=== PATIENT | female | born 1970 | race African-American/Black ===

== ENCOUNTER 2017-03-28 06:14 | Emergency (ER) | payer MEDICARE, MEDICAID ==
[2017-03-28 06:48] LABS: BASOPHILS 0 % (0-2); EOSINOPHILS 0.8 % (0-7); LYMPHOCYTES 40.7 % (15-50); MCH 29.9 pg (26.0-34.0); MCHC 31.7 g/dL (31.0-37.0); MCV 94.4 fL (80.0-100.0); MEAN PLATELET VOLUME 8.2 fL (7.4-10.4); MONOCYTES 6.6 % (2-11); NEUTROPHILS 51.9 % (40-80); PLATELET COUNT 113 10x3/uL (130-400); RDW 14.3 % (11.5-14.5); WBC 3.7 10x3/uL (4.8-10.8)
[2017-03-28 06:53] LABS: HEMATOCRIT 16.7 % (36.0-48.0); HEMOGLOBIN 5.3 g/dL (12-16); RBC 1.77 10x6/uL (4.00-5.40)
[2017-03-28 07:20] LABS: BILIRUBIN - TOTAL 0.11 mg/dL (0.2-1.3); CARBON DIOXIDE 12.6 mmol/L (21.0-32.0); CREATININE - SERUM 1.4 mg/dL (0.6-1.3); PROTEIN - SERUM 3.9 g/dL (6.4-8.2); THYROID STIMULATING HORMONE 1.01 uIU/mL (0.36-3.74); TROPONIN-I 0.02 ng/mL (0.000-0.060)
[2017-03-28 07:21] LABS: ANION GAP 13.5 mmol/L (8-16); CALCIUM 4.5 mg/dL (8.5-10.1); POTASSIUM - SERUM 2.1 mmol/L (3.5-5.1)
[2017-03-28 08:17] LABS: BASOPHILS 0.1 % (0-2); EOSINOPHILS 0.3 % (0-7); IMMATURE GRANULOCYTES 0.2 % (0-5); LYMPHOCYTES 20.9 % (15-50); MCH 30.4 pg (26.0-34.0); MCHC 33.3 g/dL (31.0-37.0); MEAN PLATELET VOLUME 8.4 fL (7.4-10.4); NEUTROPHILS 72.5 % (40-80)
[2017-03-28 08:18] LABS: HEMATOCRIT 33.9 % (36.0-48.0); HEMOGLOBIN 11.3 g/dL (12-16); MCV 91.1 fL (80.0-100.0); PLATELET COUNT 253 10x3/uL (130-400); RBC 3.72 10x6/uL (4.00-5.40)
[2017-03-28 08:27] LABS: WBC 10.2 10x3/uL (4.8-10.8)
[2017-03-28 08:40] LABS: ALBUMIN 3.7 g/dL (3.4-5.0); BILIRUBIN - TOTAL 0.16 mg/dL (0.2-1.3); CARBON DIOXIDE 21.5 mmol/L (21.0-32.0); CREATININE - SERUM 2.6 mg/dL (0.6-1.3); MAGNESIUM - SERUM 1.8 mg/dL (1.8-2.4); POTASSIUM - SERUM 4.5 mmol/L (3.5-5.1); PROTEIN - SERUM 7.1 g/dL (6.4-8.2); THYROID STIMULATING HORMONE 1.89 uIU/mL (0.36-3.74); TROPONIN-I 0.047 ng/mL (0.000-0.060)
== END 2017-03-28 08:57 | disposition home or self-care (01) ==
LOC: D.ER 06:14 → D.CVICU 08:13 → D.ER 08:57
PROVIDERS: Family Medicine
DX: I47.1 Supraventricular tachycardia (principal); I10 Essential (primary) hypertension; Z94.0 Kidney transplant status; E87.6 Hypokalemia; E83.42 Hypomagnesemia; E83.51 Hypocalcemia

== ENCOUNTER 2017-05-23 09:11 | Emergency (ER) | payer MEDICARE ==
[2017-05-23 09:41] LABS: BASOPHILS 0.2 % (0-2); EOSINOPHILS 2.1 % (0-7); HEMATOCRIT 32.7 % (36.0-48.0); HEMOGLOBIN 10.5 g/dL (12-16); IMMATURE GRANULOCYTES 0.2 % (0-5); LYMPHOCYTES 45.2 % (15-50); MCH 30.1 pg (26.0-34.0); MCHC 32.1 g/dL (31.0-37.0); MCV 93.7 fL (80.0-100.0); MEAN PLATELET VOLUME 8.3 fL (7.4-10.4); MONOCYTES 6.8 % (2-11); NEUTROPHILS 45.5 % (40-80); PLATELET COUNT 294 10x3/uL (130-400); RBC 3.49 10x6/uL (4.00-5.40); RDW 13.8 % (11.5-14.5); WBC 6.3 10x3/uL (4.8-10.8)
[2017-05-23 09:54] LABS: ALBUMIN 3.9 g/dL (3.4-5.0); ANION GAP 17.5 mmol/L (8-16); BILIRUBIN - TOTAL 0.28 mg/dL (0.2-1.3); CALCIUM 8.4 mg/dL (8.5-10.1); CARBON DIOXIDE 21.5 mmol/L (21.0-32.0); CREATININE - SERUM 3.1 mg/dL (0.6-1.3); PROTEIN - SERUM 7.4 g/dL (6.4-8.2)
[2017-05-23 10:19] LABS: APPEARANCE CLEAR (CLEAR); COLOR YELLOW (YELLOW); GLUCOSE NEGATIVE (NEGATIVE); KETONE NEGATIVE (NEGATIVE); NITRITE NEGATIVE (NEGATIVE); PROTEIN TRACE mg/dL (NEGATIVE); UROBILINOGEN NORMAL (NORMAL)
[2017-05-23 10:20] LABS: BACTERIA MODERATE /hpf (NONE SEEN); BILIRUBIN NEGATIVE (NEGATIVE); EPITHELIAL CELLS 0-5 /hpf (0-5); RED CELLS - URINE 0-5 /hpf (0-5); WHITE CELLS - URINE 0-5 /hpf (0-5)
[2017-05-23 11:14] LABS: CALCIUM 8.6 mg/dL (8.5-10.1); CARBON DIOXIDE 25.2 mmol/L (21.0-32.0); CREATININE - SERUM 3.1 mg/dL (0.6-1.3); POTASSIUM - SERUM 4.2 mmol/L (3.5-5.1)
== END 2017-05-23 11:50 | disposition home or self-care (01) ==
LOC: D.ER 09:11
PROVIDERS: Family Medicine
DX: J20.9 Acute bronchitis, unspecified (principal); I12.9 Hypertensive chronic kidney disease with stage 1 through stage 4 chronic kidney disease, or unspecified chronic kidney disease; N18.9 Chronic kidney disease, unspecified; F17.200 Nicotine dependence, unspecified, uncomplicated

== ENCOUNTER 2017-11-01 08:45 | Emergency (ER) | payer MEDICARE ==
[2017-11-01 10:08] LABS: BASOPHILS 0.1 % (0-2); EOSINOPHILS 0 % (0-7); HEMATOCRIT 42.7 % (36.0-48.0); HEMOGLOBIN 14.4 g/dL (12-16); IMMATURE GRANULOCYTES 0.3 % (0-5); LYMPHOCYTES 12.2 % (15-50); MCH 31.4 pg (26.0-34.0); MCHC 33.7 g/dL (31.0-37.0); MEAN PLATELET VOLUME 8.9 fL (7.4-10.4); MONOCYTES 3.2 % (2-11); NEUTROPHILS 84.2 % (40-80); PLATELET COUNT 298 10x3/uL (130-400); RBC 4.59 10x6/uL (4.00-5.40); RDW 14.4 % (11.5-14.5); WBC 9.7 10x3/uL (4.8-10.8)
[2017-11-01 10:24] LABS: APPEARANCE HAZY (CLEAR); BACTERIA FEW /hpf (NONE SEEN); BILIRUBIN NEGATIVE (NEGATIVE); COLOR YELLOW (YELLOW); EPITHELIAL CELLS RARE /hpf (0-5); GLUCOSE NEGATIVE (NEGATIVE); KETONE NEGATIVE (NEGATIVE); NITRITE NEGATIVE (NEGATIVE); PROTEIN NEGATIVE (NEGATIVE); SPECIFIC GRAVITY 1.005 (1.005-1.020); UROBILINOGEN NORMAL (NORMAL); WHITE CELLS - URINE RARE /hpf (0-5)
[2017-11-01 10:31] LABS: ALBUMIN 4.9 g/dL (3.4-5.0); AMYLASE - SERUM 159 U/L (25-115); BILIRUBIN - TOTAL 0.76 mg/dL (0.2-1.3); CALCIUM 9.6 mg/dL (8.5-10.1); CARBON DIOXIDE 19.2 mmol/L (21.0-32.0); CHLORIDE - SERUM 98 mmol/L (98-107); CREATININE - SERUM 2.8 mg/dL (0.6-1.3); GLUCOSE 94 mg/dL (74-106); LIPASE 95 U/L (73-393); PROTEIN - SERUM 9.7 g/dL (6.4-8.2); SODIUM 132 mmol/L (136-145); UREA NITROGEN 23 mg/dL (7-18); eGFR NON AFRICAN AMERICAN 19 mL/min (90-120)
[2017-11-01 10:34] LABS: ALKALINE PHOSPHATASE 97 U/L (46-116); ALT (SGPT) 23 U/L (10-68); TROPONIN-I < 0.017 ng/mL (0.000-0.060)
[2017-11-01 11:33] LABS: POTASSIUM - SERUM 4.8 mmol/L (3.5-5.1)
[2017-11-05 15:37] VITALS: BMI 26.6
== END 2017-11-01 13:00 | disposition home or self-care (01) ==
LOC: D.ER 08:45
PROVIDERS: Family Medicine
DX: I31.3 Pericardial effusion (noninflammatory) (principal); R11.10 Vomiting, unspecified; I12.9 Hypertensive chronic kidney disease with stage 1 through stage 4 chronic kidney disease, or unspecified chronic kidney disease; N18.9 Chronic kidney disease, unspecified

== ENCOUNTER 2017-11-05 12:23 | Inpatient (IN) | payer MEDICARE ==
[~2017-11-05] VITALS: Ht 162.6 cm; Wt 72.5 kg
--- NOTE | ~2017-11-05 | EC ---
PATIENT:SUKUMAR MCLEAN DATE OF SERVICE: 11/05/17 SEX: F MEDICAL RECORD: [id number] DATE OF : [birth year] LOCATION:D.M2 D.211 AGE OF PATIENT: 47 ADMISSION DATE: 11/06/17 REFERRING PHYSICIAN: INTERPRETING PHYSICIAN: TRACIE NORRIS MD ECHOCARDIOGRAM REPORT ECHO CHARGES 4 ECHO COMPLETE Date: 11/05 CLINICAL DIAGNOSIS: PERICARDIAL EFFUSION ECHOCARDIOGRAPHIC MEASUREMENTS (adult normal given) AC root (d.<3.7cm) 3.1 cm LV Septum d (<1.2 cm> 1.8 cm Valve Excursion 1.9 cm LV Septum (systole) 2.3 cm Left Atria (s.<4.0cm> 3.9 cm LVPW d(<1.2cm) 1.6 cm RV (d.<2.3cm) 2.8 cm LVPW (sytole) 2.2 cm LV diastole(<5.6CM) 3.9 cm MV E-F(>70mm/sec) cm LV systole 1.7 cm LVOT Diameter 1.9 cm MV exc.(>10mm) cm Est.ejection fraction (50-75%) % DOPPLER: LVIT cm/sec A 134 cm/sec E 115 cm/sec LA cm/sec RVSP 37.0 mmHg LVOT 184 cm/sec AOP1/2T m/s Asc. Ao 198 cm/sec RVOT 71.0 cm/sec RA cm/sec PA 98.0 cm/sec AV Gradient Peak 16.0 mmHg AV Mean 6.8 mmHg AV Area 2.8 cm MV Gradient Peak 8.3 mmHg MV Mean 3.6 mmHg MV Area cm COMMENTS: Roll Forming Supervisor: Carlos Eduardo SHEEHANOE Supervisor Claims: 1 Dr. Norris TAPE# PACS Pericardial Effusion Y DATE OF SERVICE: 11/05/2017 PROCEDURE: Echocardiogram. FINDINGS: 1. Left ventricular chamber size is within normal limits. Left ventricular systolic function is normal. Overall ejection fraction estimated at 60%. 2. Left atrium, right atrium, and right ventricle chamber sizes are within normal limits. 3. Valvular structures have normal structure and motion. ECHOCARDIOGRAM REPORT [id number] SUKUMAR MCLEAN 4. Doppler interrogation reveals trace mitral regurgitation, mild tricuspid regurgitation, no other valvular insufficiency or stenosis. Pulmonary systolic pressure is estimated 37 mmHg. 5. Trace pericardial effusion is present. This is not hemodynamically significant. No evidence of left ventricular thrombus. TRANSINT:[id number] Voice Confirmation ID: [id number] DOCUMENT ID: [id number] TRACIE NORRIS MD at 1629 CC: [id number] DICTATION DATE: 11/06/17840 CRA OFFICER: 11/06/17 1151 DIS IN 11/08/17 [id number] [place] [address]
[2017-11-05] MEDS ORDERED: NORMODYNE / TR200 MG PO (13:12)
[2017-11-05] MEDS ORDERED: HYDRALAZINE HCL50 MG PO (13:12)
[2017-11-05] MEDS ORDERED: PROTONIX40 MG PO (13:13)
[2017-11-05] MEDS ORDERED: RENA-VITE TABL0.8 MG PO (13:14)
[2017-11-05] MEDS ORDERED: SODIUM BICARBO650 MG PO (13:15)
[2017-11-05] MEDS ORDERED: CATAPRES0.2 MG PO (13:16)
[2017-11-05] MEDS ORDERED: ZOFRAN4 MG PO (13:17)
[2017-11-05] MEDS ORDERED: CELLCEPT500 MG PO (13:18)
[2017-11-05] MEDS ORDERED: TACROLIMUS ANHYD1 MG PO (13:18)
[2017-11-05] MEDS ORDERED: VITAMIN D250000 UNIT PO (13:19)
[2017-11-05] MEDS ORDERED: ACETAMINOPHEN325 MG PO (13:19)
[2017-11-05] MEDS ORDERED: REGLAN10 MG PO (13:20)
[2017-11-05] MEDS ORDERED: BENADRYL25 MG PO (13:21)
[2017-11-05] MEDS ORDERED: MIRALAX17 GM PO (13:21)
[2017-11-05 13:30] VITALS: BP 110/63; BMI 26.6
[2017-11-05 14:34] LABS: BASOPHILS 0.1 % (0-2); EOSINOPHILS 0.9 % (0-7); HEMATOCRIT 32.7 % (36.0-48.0); HEMOGLOBIN 10.9 g/dL (12-16); IMMATURE GRANULOCYTES 0.3 % (0-5); LYMPHOCYTES 36.2 % (15-50); MCH 30.4 pg (26.0-34.0); MCHC 33.3 g/dL (31.0-37.0); MCV 91.1 fL (80.0-100.0); MEAN PLATELET VOLUME 9.1 fL (7.4-10.4); MONOCYTES 13.6 % (2-11); NEUTROPHILS 48.9 % (40-80); RBC 3.59 10x6/uL (4.00-5.40); RDW 14.1 % (11.5-14.5); WBC 7.4 10x3/uL (4.8-10.8)
[2017-11-05 14:35] LABS: PLATELET COUNT 211 10x3/uL (130-400)
[2017-11-05 14:48] LABS: ANION GAP 19.4 mmol/L (8-16); CALCIUM 7.8 mg/dL (8.5-10.1); CREATININE - SERUM 11.7 mg/dL (0.6-1.3); POTASSIUM - SERUM 3.4 mmol/L (3.5-5.1)
[2017-11-05 15:31] LABS: AMYLASE - SERUM 75 U/L (25-115); LIPASE 128 U/L (73-393)
[2017-11-05 15:37] VITALS: BP 127/82; Ht 162.6 cm; Wt 72.5 kg
[2017-11-05 20:49] LABS: ALBUMIN 3.6 g/dL (3.4-5.0); ANION GAP 20.8 mmol/L (8-16); BILIRUBIN - TOTAL 0.33 mg/dL (0.2-1.3); CALCIUM 7.7 mg/dL (8.5-10.1); CARBON DIOXIDE 20.4 mmol/L (21.0-32.0); CREATININE - SERUM 9.7 mg/dL (0.6-1.3); PROTEIN - SERUM 6.2 g/dL (6.4-8.2)
[2017-11-05 20:55] LABS: POTASSIUM - SERUM 4.2 mmol/L (3.5-5.1)
[2017-11-05 21:09] VITALS: BP 134/84
[2017-11-06 01:02] VITALS: BP 123/80
[2017-11-06 05:31] VITALS: BP 122/56
[2017-11-06 05:36] LABS: BASOPHILS 0.1 % (0-2); EOSINOPHILS 1.1 % (0-7); HEMATOCRIT 29.8 % (36.0-48.0); IMMATURE GRANULOCYTES 0.1 % (0-5); LYMPHOCYTES 46.8 % (15-50); MCH 30.3 pg (26.0-34.0); MCHC 33.6 g/dL (31.0-37.0); MCV 90.3 fL (80.0-100.0); MEAN PLATELET VOLUME 9.1 fL (7.4-10.4); MONOCYTES 13.8 % (2-11); NEUTROPHILS 38.1 % (40-80); PLATELET COUNT 212 10x3/uL (130-400); RDW 13.8 % (11.5-14.5); WBC 7.5 10x3/uL (4.8-10.8)
[2017-11-06 06:11] LABS: ANION GAP 17.1 mmol/L (8-16); CALCIUM 7.2 mg/dL (8.5-10.1); CREATININE - SERUM 7.9 mg/dL (0.6-1.3); MAGNESIUM - SERUM 1.3 mg/dL (1.8-2.4); PHOSPHOROUS 4.6 mg/dL (2.5-4.9); POTASSIUM - SERUM 4.1 mmol/L (3.5-5.1)
[2017-11-06 06:30] LABS: COLOR YELLOW (YELLOW)
[2017-11-06 06:31] LABS: APPEARANCE CLEAR (CLEAR); BILIRUBIN NEGATIVE (NEGATIVE); GLUCOSE NEGATIVE (NEGATIVE); KETONE NEGATIVE (NEGATIVE); NITRITE NEGATIVE (NEGATIVE); PROTEIN NEGATIVE (NEGATIVE); UROBILINOGEN NORMAL (NORMAL)
[2017-11-06 06:32] LABS: BACTERIA FEW /hpf (NONE SEEN); EPITHELIAL CELLS 0-5 /hpf (0-5); RED CELLS - URINE 0-5 /hpf (0-5); WHITE CELLS - URINE NSEEN /hpf (0-5)
[2017-11-06 08:29] VITALS: BP 140/78
[2017-11-06 11:37] LABS: UDS - AMPHET NEGATIVE QUAL (NEGATIVE); UDS - BARB NEGATIVE QUAL (NEGATIVE); UDS - BENZO NEGATIVE QUAL (NEGATIVE); UDS - COCAINE NEGATIVE QUAL (NEGATIVE); UDS - OPIATE NEGATIVE QUAL (NEGATIVE); UDS - PCP NEGATIVE QUAL (NEGATIVE); UDS - THC POSITIVE QUAL (NEGATIVE)
[2017-11-06 11:54] VITALS: BP 143/87
[2017-11-06 15:44] VITALS: BP 176/105
[2017-11-06 20:00] VITALS: BP 175/99
[2017-11-07 01:00] VITALS: BP 150/86
[2017-11-07 04:00] VITALS: BP 177/99
[2017-11-07 07:06] LABS: BASOPHILS 0.3 % (0-2); EOSINOPHILS 1.1 % (0-7); HEMATOCRIT 33.9 % (36.0-48.0); HEMOGLOBIN 11.3 g/dL (12-16); IMMATURE GRANULOCYTES 0.3 % (0-5); LYMPHOCYTES 27.4 % (15-50); MCH 30.5 pg (26.0-34.0); MCHC 33.3 g/dL (31.0-37.0); MCV 91.6 fL (80.0-100.0); MEAN PLATELET VOLUME 10.1 fL (7.4-10.4); MONOCYTES 17.4 % (2-11); NEUTROPHILS 53.5 % (40-80); RDW 14.1 % (11.5-14.5)
[2017-11-07 07:12] LABS: PLATELET COUNT 117 10x3/uL (130-400)
[2017-11-07 07:54] VITALS: BP 192/122
[2017-11-07 13:44] LABS: % SATURATION 39 % (15-55); IRON 79 ug/dl (35-150); TOTAL IRON BIND CAPACITY 202 ug/dl (260-445); UNSAT IRON BIND CAPACITY 123 ug/dl (150-375)
[2017-11-07 13:46] VITALS: BP 146/71
[2017-11-07 13:58] LABS: ALBUMIN 3.6 g/dL (3.4-5.0); ANION GAP 18.9 mmol/L (8-16); BILIRUBIN - TOTAL 0.3 mg/dL (0.2-1.3); CALCIUM 7.8 mg/dL (8.5-10.1); CARBON DIOXIDE 23.3 mmol/L (21.0-32.0); CREATININE - SERUM 3.5 mg/dL (0.6-1.3); MAGNESIUM - SERUM 1.1 mg/dL (1.8-2.4); PHOSPHOROUS 2.8 mg/dL (2.5-4.9); POTASSIUM - SERUM 4.2 mmol/L (3.5-5.1); PROTEIN - SERUM 6.3 g/dL (6.4-8.2)
[2017-11-07 15:29] VITALS: BP 169/101
[2017-11-07 21:33] VITALS: BP 173/100
[2017-11-08 01:06] VITALS: BP 156/92
[2017-11-08 06:12] VITALS: BP 174/112
[2017-11-08 06:20] LABS: BASOPHILS 0.2 % (0-2); EOSINOPHILS 1.6 % (0-7); HEMATOCRIT 30.3 % (36.0-48.0); HEMOGLOBIN 9.9 g/dL (12-16); IMMATURE GRANULOCYTES 0.3 % (0-5); LYMPHOCYTES 26.8 % (15-50); MCH 30.1 pg (26.0-34.0); MCHC 32.7 g/dL (31.0-37.0); MCV 92.1 fL (80.0-100.0); MEAN PLATELET VOLUME 9.4 fL (7.4-10.4); NEUTROPHILS 55.1 % (40-80); RBC 3.29 10x6/uL (4.00-5.40); RDW 14.2 % (11.5-14.5); WBC 8.6 10x3/uL (4.8-10.8)
[2017-11-08 06:44] LABS: PLATELET COUNT 211 10x3/uL (130-400)
[2017-11-08 06:49] LABS: ALBUMIN 3.4 g/dL (3.4-5.0); ANION GAP 16.4 mmol/L (8-16); BILIRUBIN - TOTAL 0.4 mg/dL (0.2-1.3); CALCIUM 7.4 mg/dL (8.5-10.1); CARBON DIOXIDE 21.2 mmol/L (21.0-32.0); CREATININE - SERUM 2.7 mg/dL (0.6-1.3); POTASSIUM - SERUM 3.6 mmol/L (3.5-5.1); PROTEIN - SERUM 6.1 g/dL (6.4-8.2)
[2017-11-08 07:00] VITALS: BP 154/98
[2017-11-08 12:00] VITALS: BP 162/105
[2017-11-08 17:14] VITALS: BP 199/115
[2017-11-09 08:21] LABS: FOLATE (FOLIC ACID) - SERUM >20.0 ng/mL (>3.0)
[2017-11-09 09:17] LABS: VITAMIN D 25 HYDROXY 13.6 ng/mL (30.0-100.0)
[2017-11-10 13:20] LABS: TACROLIMUS - LABCORP 3.4 ng/mL (2.0-20.0)
[2017-11-12 14:27] LABS: CMV QUANT DNA PCR (PLASMA) Positive < 200 IU/mL (Negative)
== END 2017-11-08 18:03 | disposition home or self-care (01) | DRG 315 ==
LOC: D.M2 12:23 → OBSVTIME 12:23 → D.M2 12:23 → D.SDCHOLD 11-08 16:19 → D.M2 11-08 16:19
PROVIDERS: Internal Medicine; Internal Medicine Nephrology
DX: I95.9 Hypotension, unspecified (principal); I31.3 Pericardial effusion (noninflammatory); N17.9 Acute kidney failure, unspecified; Z94.0 Kidney transplant status; N18.4 Chronic kidney disease, stage 4 (severe); E87.1 Hypo-osmolality and hyponatremia; E87.2 Acidosis; E86.0 Dehydration; I12.9 Hypertensive chronic kidney disease with stage 1 through stage 4 chronic kidney disease, or unspecified chronic kidney disease; E87.6 Hypokalemia; E83.51 Hypocalcemia; D63.1 Anemia in chronic kidney disease; Z87.891 Personal history of nicotine dependence

== ENCOUNTER → 2017-12-28 12:53 | Outpatient (CLI) | payer MEDICARE ==
[2017-11-05 15:37] VITALS: BMI 26.6
[~2017-12-28 12:53] MED LIST: ACETAMINOPHEN325 MG PO; BENADRYL25 MG PO; CATAPRES0.2 MG PO; CELLCEPT500 MG PO; HYDRALAZINE HCL50 MG PO; MIRALAX17 GM PO; NORMODYNE / TR200 MG PO; PROTONIX40 MG PO; REGLAN10 MG PO; RENA-VITE TABL0.8 MG PO; SODIUM BICARBO650 MG PO; TACROLIMUS ANHYD1 MG PO; VITAMIN D250000 UNIT PO; ZOFRAN4 MG PO
== END | disposition home or self-care (01) ==
LOC: D.CT 12:53
DX: Z94.0 Kidney transplant status (principal); I12.9 Hypertensive chronic kidney disease with stage 1 through stage 4 chronic kidney disease, or unspecified chronic kidney disease; N18.4 Chronic kidney disease, stage 4 (severe); I95.9 Hypotension, unspecified; I95.1 Orthostatic hypotension; R51 Headache